=== PATIENT | female | born 1985 | race African-American/Black ===

== ENCOUNTER 2019-04-08 18:40 | Emergency (ER) | payer OTHER ==
[~2019-04-08] VITALS: Ht 165.1 cm; Wt 74.5 kg
[2019-04-08 18:47] VITALS: BP 124/76
--- NOTE | 2019-04-08 19:12 | NUR ---
REINIER MONTENEGRO EVALUATING AT BEDSIDE.
[2019-04-08] MEDS ORDERED: cefTRIAXone 250 MG in LIDOCAINE MPF 1% - 5 mL VIAL 0.9 ML IM ONE (19:20)
[2019-04-08] MEDS ORDERED: AZITHROMYCIN 250 MG TAB PO ONE (19:20)
--- NOTE | 2019-04-08 19:25 | NUR ---
33 YO F MARIE SELF PRESENTS TO ED REQUESTING STD EVALUATION. PT STATES THAT TODAY SHE WAS CONTACTED BY SOMEONE SHE HAD UNPROTECTED INTERCOURSE WITH X2 WEEKS AGO WHO STATED THEY TESTED POSITIVE FOR CHLAMYDIA. PT STATES SHE HAS NO SYMPTOMS. DENIES PAIN, URINARY BURNING OR DISCOMFORT, OR ABNORMAL VAGINAL DISCHARGE. PMH-- DENIES RX-- DENIES
[2019-04-08 19:45] VITALS: BP 124/76
--- NOTE | 2019-04-08 19:45 | NUR ---
Patient discharged with v/s stable. Written and verbal after care instructions given and explained. Patient verbalized understanding. Ambulatory with steady gait. All questions addressed prior to discharge. Advised to follow up with PMD or [facility] within 2 weeks and return to ER for any worsening S/SX.
[2019-04-13 16:46] LABS: CHLAMYDIA TRACHOMATIS AMP DNA NEGATIVE (NEGATIVE)
== END 2019-04-08 19:45 | disposition home or self-care (01) ==
LOC: MED 18:40
DX: F41.9 Anxiety disorder, unspecified (principal); Z11.3 Encounter for screening for infections with a predominantly sexual mode of transmission
CPT/HCPCS: 36415; 81002; 81025; 96372; 99283; J0696; J2001; 87491